=== PATIENT | female | born 1950 | race Caucasian/White ===

== ENCOUNTER → 2017-01-26 09:47 | Outpatient (CLI) | payer MEDICARE, OTHER ==
[2009-11-22 12:04] VITALS: BMI 23.5
== END ==
LOC: D.MAMMO 09:47
DX: Z12.31 Encounter for screening mammogram for malignant neoplasm of breast (principal)

== ENCOUNTER 2017-03-03 11:33 | Emergency (ER) | payer MEDICARE, OTHER ==
[2009-11-22 12:04] VITALS: BMI 23.5
[2017-03-03 13:22] LABS: EOSINOPHILS 5.9 % (0-7); HEMATOCRIT 44.4 % (36.0-48.0); IMMATURE GRANULOCYTES 0.5 % (0-5); LYMPHOCYTES 32.2 % (15-50); MCH 34.5 pg (26.0-34.0); MCHC 33.8 g/dL (31.0-37.0); MCV 102.1 fL (80.0-100.0); MEAN PLATELET VOLUME 10.6 fL (7.4-10.4); MONOCYTES 10.4 % (2-11); RBC 4.35 10x6/uL (4.00-5.40); RDW 12.6 % (11.5-14.5)
[2017-03-03 13:37] LABS: APPEARANCE HAZY (CLEAR); BILIRUBIN NEGATIVE (NEGATIVE); COLOR YELLOW (YELLOW); GLUCOSE NEGATIVE (NEGATIVE); KETONE NEGATIVE (NEGATIVE); NITRITE NEGATIVE (NEGATIVE); PLATELET COUNT 345 10x3/uL (130-400); PROTEIN NEGATIVE (NEGATIVE); UROBILINOGEN NORMAL (NORMAL)
[2017-03-03 13:49] LABS: ALBUMIN 3.4 g/dL (3.4-5.0); ALKALINE PHOSPHATASE 91 U/L (46-116); ALT (SGPT) 41 U/L (10-68); AMYLASE - SERUM 34 U/L (25-115); BILIRUBIN - TOTAL 0.22 mg/dL (0.2-1.3); CALC OSMOLALITY 278 mosm/kg (275-300); CALCIUM 9.7 mg/dL (8.5-10.1); CARBON DIOXIDE 28.8 mmol/L (21.0-32.0); CHLORIDE - SERUM 104 mmol/L (98-107); CREATININE - SERUM 0.7 mg/dL (0.6-1.3); GLUCOSE 115 mg/dL (74-106); LIPASE 117 U/L (73-393); POTASSIUM - SERUM 4.1 mmol/L (3.5-5.1); PROTEIN - SERUM 7.2 g/dL (6.4-8.2); SODIUM 140 mmol/L (136-145); UREA NITROGEN 10 mg/dL (7-18); eGFR NON AFRICAN AMERICAN 88 mL/min (90-120)
[2017-03-18] MEDS ORDERED: TOPROL XL50 MG PO (14:14)
[2017-03-18] MEDS ORDERED: AVAPRO150 MG PO (14:14)
[2017-03-18] MEDS ORDERED: ESTRACE1 MG PO (14:15)
[2017-03-18] MEDS ORDERED: DITROPAN X10 MG/BOTT PO (14:15)
[2017-03-18] MEDS ORDERED: ZOVIRAX200 MG PO (14:16)
[2017-03-18] MEDS ORDERED: OMEPRAZOLE20 M1 PO (14:17)
[2017-03-18] MEDS ORDERED: DETROL2 MG PO (14:17)
[2017-03-18] MEDS ORDERED: ASPIRIN EC81 M1 PO (14:17)
[2017-03-18] MEDS ORDERED: CENTRUM SILVER1 TA1 PO (14:18)
[2017-03-18] MEDS ORDERED: SUPER B COMPLE150 MG PO (14:18)
[2017-03-18] MEDS ORDERED: PROBIOTIC1 EAC1 PO (14:18)
[2017-03-18] MEDS ORDERED: NASACORT10.8 ML NASAL (14:18)
[2017-03-18] MEDS ORDERED: ATIVAN1 MG PO (14:21)
[2017-03-18] MEDS ORDERED: BREO ELLIPTA 21 EACH (14:22)
[2017-03-18] MEDS ORDERED: COMBIVENT RESPIM4 GM INH (14:23)
[2017-03-18] MEDS ORDERED: VITAMIN B-122500 MCG PO (14:23)
[2017-03-18] MEDS ORDERED: TEMOVATE 0.05%15 G1 TOPICAL (14:24)
[2017-04-03] MEDS ORDERED: EFFEXOR37.5 MG PO (12:10)
[2017-04-03] MEDS ORDERED: SYMBICORT 16010.2 GM INH (12:11)
[2017-04-06 10:00] VITALS: BMI 22.1
== END 2017-03-03 21:38 | disposition home or self-care (01) ==
LOC: D.ER 11:33
PROVIDERS: Family Medicine
DX: R10.11 Right upper quadrant pain (principal); R10.32 Left lower quadrant pain; R42 Dizziness and giddiness; R93.5 Abnormal findings on diagnostic imaging of other abdominal regions, including retroperitoneum; I10 Essential (primary) hypertension; F17.200 Nicotine dependence, unspecified, uncomplicated

== ENCOUNTER 2017-03-19 05:34 | Day surgery (SDC) | payer MEDICARE, OTHER ==
[2017-03-18 15:49] LABS: HEMATOCRIT 44.9 % (36.0-48.0); HEMOGLOBIN 15.2 g/dL (12-16); MCH 34.2 pg (26.0-34.0); MCHC 33.9 g/dL (31.0-37.0); MCV 100.9 fL (80.0-100.0); MEAN PLATELET VOLUME 11.3 fL (7.4-10.4); RBC 4.45 10x6/uL (4.00-5.40); RDW 12.4 % (11.5-14.5); WBC 5.1 10x3/uL (4.8-10.8)
[~2017-03-19 05:34] MED LIST: ASPIRIN EC81 M1 PO; ATIVAN1 MG PO; AVAPRO150 MG PO; BREO ELLIPTA 21 EACH; CENTRUM SILVER1 TA1 PO; COMBIVENT RESPIM4 GM INH; DETROL2 MG PO; DITROPAN X10 MG/BOTT PO; ESTRACE1 MG PO; NASACORT10.8 ML NASAL; OMEPRAZOLE20 M1 PO; PROBIOTIC1 EAC1 PO; SUPER B COMPLE150 MG PO; TEMOVATE 0.05%15 G1 TOPICAL; TOPROL XL50 MG PO; VITAMIN B-122500 MCG PO; ZOVIRAX200 MG PO
[2017-03-19 06:31] VITALS: BP 146/63; BMI 21.8
--- NOTE | 2017-03-19 09:10 | NUR ---
VOIDED WITHOUT DIFFICULTY. DRESSED,READY TO VOID.
--- NOTE | 2017-03-19 10:40 | OP ---
PATIENT NAME: TARAH TRAN MEDICAL RECORD: [id number] :48 LOCATION:D.OPS ADMISSION DATE: SURGEON: ELVIN ÁLVAREZ MD DATE OF OPERATION: 03/19/2017 SURGEON: Elvin Álvarez MD ANESTHESIA: MAC by Neno Camejo CRNA PREOPERATIVE DIAGNOSIS: Cystic pelvic mass posterior to the bladder. PROCEDURE: Cystoscopy. FINDINGS: Normal bladder, single ureteral orifices bilaterally with no tumors visible. ESTIMATED BLOOD LOSS: None. CLINICAL HISTORY: This is a 66-year-old female, A1 [address] Dr[address] Foreman for a cystic mass which was discovered on imaging. This mass was posterior to the bladder. She has previously had a hysterectomy with removal of one ovary and there is over the remaining which is on the left side. She is also a smoker, 2-3 cigarettes per day since age 16. We come today to look in the bladder to be sure that the tumor does not originate from or involves the bladder. SHE IS ALLERGIC TO PENICILLIN AND DIFLUCAN AND ROCEPHIN. 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 DESCRIPTION OF PROCEDURE: The patient was given IV sedation. She was placed in the dorsal lithotomy position and prepped and draped. A 17-Armenian cystoscope with 30-degree lens was used for visualization. She does have a grade I cystocele, which requires tipping the scope down in order to look at it. No tumors were seen. Bladder was emptied through the cystoscope sheath. I will refer her to gynecology. TRANSINT:[id number] Voice Confirmation ID: [id number] DOCUMENT ID: [id number] ELVIN ÁLVAREZ MD at 1040 CC: [id number] DICTATION DATE: 03/19/17 0804 AURICULOTHERAPIST: 03/19/17 1033 [facility] 03/19/17 [facility] [address] [place] [address]
[2017-04-03] MEDS ORDERED: EFFEXOR37.5 MG PO (12:10)
[2017-04-03] MEDS ORDERED: SYMBICORT 16010.2 GM INH (12:11)
== END 2017-03-19 09:10 | disposition home or self-care (01) ==
LOC: D.OPS 05:34 → D.PAN 10:30 → D.OPS 10:30
PROVIDERS: Anesthesiology
DX: N81.10 Cystocele, unspecified (principal); F17.210 Nicotine dependence, cigarettes, uncomplicated; Z88.1 Allergy status to other antibiotic agents; Z88.0 Allergy status to penicillin; Z01.812 Encounter for preprocedural laboratory examination

== ENCOUNTER 2017-04-06 16:41 | Day surgery (SDC) | payer MEDICARE, OTHER ==
[2017-04-03 13:02] LABS: BASOPHILS 0.7 % (0-2); EOSINOPHILS 2.3 % (0-7); HEMATOCRIT 39.3 % (36.0-48.0); HEMOGLOBIN 13.2 g/dL (12-16); IMMATURE GRANULOCYTES 0.3 % (0-5); LYMPHOCYTES 23.8 % (15-50); MCH 33.4 pg (26.0-34.0); MCHC 33.6 g/dL (31.0-37.0); MCV 99.5 fL (80.0-100.0); MEAN PLATELET VOLUME 11.4 fL (7.4-10.4); MONOCYTES 9.8 % (2-11); NEUTROPHILS 63.1 % (40-80); PLATELET COUNT 305 10x3/uL (130-400); RBC 3.95 10x6/uL (4.00-5.40); RDW 13.2 % (11.5-14.5); WBC 9.8 10x3/uL (4.8-10.8)
[~2017-04-06] VITALS: Ht 160 cm; Wt 56.7 kg
[2017-04-06 10:00] VITALS: BP 127/83; Ht 160 cm; Wt 56.7 kg
[~2017-04-06 16:41] MED LIST changes: +EFFEXOR37.5 MG PO; +SYMBICORT 16010.2 GM INH
--- NOTE | 2017-04-07 09:02 | OP ---
PATIENT NAME: TARAH TRAN MEDICAL RECORD: [id number] :49 LOCATION:ELDER ADMISSION DATE: SURGEON: SAUL UNDERWOOD MD DATE OF OPERATION: 04/06/2017 PREOPERATIVE DIAGNOSIS: Pelvic mass. POSTOPERATIVE DIAGNOSES: 1. Pelvic adhesive disease. 2. Right hydrosalpinx. PROCEDURES PERFORMED: 1. Diagnostic laparoscopy. 2. Lysis of adhesions. 3. Right salpingectomy. SURGEON: Saul Underwood MD ANESTHESIOLOGIST: Dr. Jackson. SHAKER SCREEN OPERATOR: Ilda Prince. ANESTHESIA: General. FINDINGS: Dense adhesions of the omentum to the midline. The left ovary is visualized, appears unremarkable and was densely adhesed to the sidewall and bowel. Right hydrosalpinx approximately 5-6 cm. Otherwise, the abdominal anatomy was unremarkable. SPECIMEN REMOVED: Right tube. SPECIMEN DISPOSITION: To pathology. ESTIMATED BLOOD LOSS: Minimal. FLUIDS: 650 cc of lactated Ringer's. URINE OUTPUT: Quantity sufficient void prior to the procedure. COMPLICATIONS: None. DRAIN: None. INDICATIONS: The patient is a 66-year-old female with a simple pelvic mass and complaints of pressure. The patient has received a SUSAN test, which is negative. After counseling, the patient does not wish to be referred and understands the purpose of this procedure to be diagnostic with intervention if felt to be a benign process. DESCRIPTION OF PROCEDURE: After informed consents were assured, the patient was taken to the operating room, anesthetic is obtained. The patient prepped and draped in usual sterile fashion. Incision was made in the umbilicus to accommodate a 5-mm trocar, which is inserted without difficulty. Pneumoperitoneum was developed. Accessory ports were now placed in the right lower quadrant in the midline. The 11-mm port in the midline. A 5 mm is the OPERATIVE REPORT [id number] TARAH TRAN right lower quadrant port. A Harmonic scalpel was introduced and the adhesions of the omentum in the midline are taken down. After the adhesions were freed, the pelvis was visualized. The left ovary was densely adhesed to the sidewall and bowel. The right adnexa is inspected. Right ovary is absent and there is a large right hydrosalpinx. This is taken down with a Harmonic scalpel and removed through the 11-mm port. Pelvis is now copiously irrigated, irrigant removed. Then, an inspection of the operative site reveals adequate hemostasis. Pneumoperitoneum was released and the accessory trocars were removed. The primary trocars were removed and all sites were closed with a subcuticular stitch and Dermabond was applied. Sponge, lap and needle counts correct times 2. TRANSINT:[id number] Voice Confirmation ID: [id number] DOCUMENT ID: [id number] SAUL UNDERWOOD MD at 0902 CC: [id number] DICTATION DATE: 04/06/17 1201 [employer] DIRECTOR: 04/06/17 1444 [facility] 04/06/17 [id number] [place] [address]
== END 2017-04-06 16:42 | disposition home or self-care (01) ==
LOC: D.PAN 16:41
PROVIDERS: Obstetrics & Gynecology
DX: R19.00 Intra-abdominal and pelvic swelling, mass and lump, unspecified site (principal); N70.11 Chronic salpingitis; F17.200 Nicotine dependence, unspecified, uncomplicated; J45.909 Unspecified asthma, uncomplicated; I10 Essential (primary) hypertension; K21.9 Gastro-esophageal reflux disease without esophagitis; Z01.812 Encounter for preprocedural laboratory examination

== ENCOUNTER → 2018-05-27 16:47 | Outpatient (CLI) | payer MEDICARE ==
[2017-04-06 10:00] VITALS: BMI 22.1
== END | disposition home or self-care (01) ==
LOC: D.MAMMO 10:00
DX: R92.8 Other abnormal and inconclusive findings on diagnostic imaging of breast (principal)

== ENCOUNTER → 2018-07-28 12:50 | Outpatient (CLI) | payer MEDICARE, BC ==
[2017-04-06 10:00] VITALS: BMI 22.1
== END | disposition home or self-care (01) ==
LOC: D.RT 12:50
PROVIDERS: ATTEND Internal Medicine Pulmonary Disease
DX: J44.9 Chronic obstructive pulmonary disease, unspecified (principal)

== ENCOUNTER → 2019-11-07 12:07 | Outpatient (CLI) | payer MEDICARE, BC ==
[2017-04-06 10:00] VITALS: BMI 22.1
== END | disposition home or self-care (01) ==
LOC: D.LAB 12:07
PROVIDERS: ATTEND Internal Medicine Pulmonary Disease
DX: J44.9 Chronic obstructive pulmonary disease, unspecified (principal)

== ENCOUNTER → 2019-11-10 12:58 | Outpatient (CLI) | payer MEDICARE, BC ==
[2017-04-06 10:00] VITALS: BMI 22.1
== END | disposition home or self-care (01) ==
LOC: D.RT 08-08 09:30 → D.RAD 08-08 10:00 → D.RT 10-05 13:00 → D.RAD 10-05 14:00 → D.RT 12:58
PROVIDERS: ATTEND Internal Medicine Pulmonary Disease
DX: J44.9 Chronic obstructive pulmonary disease, unspecified (principal)